=== PATIENT | male | born 1945 | race Caucasian/White ===

== ENCOUNTER 2022-06-26 11:52 | Emergency (ER) | payer MEDICARE, BC, SELFPAY ==
[2022-06-26] VITALS (26 sets, daily range): BP systolic 76–134; BP diastolic 47–80; PULSE 54–140; RESP 20; TEMP 36.4–36.8; O2SAT 95–100; BMI 23.6
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
--- NOTE | 2022-06-26 12:55 | DI.CT.S_ITS ---
PROCEDURE: CT HEAD/BRAIN WO CON INDICATIONS: trauma TECHNIQUE: Noncontrast 4.5 mm thick angled axial sections acquired from the foramen magnum to the vertex, with coronal and sagittal reformats. For radiation dose reduction, the following was used: automated exposure control, adjustment of mA and/or kV according to patient size. COMPARISON: None. FINDINGS: Image quality: Excellent. CSF spaces: Basal cisterns are patent. No extra-axial fluid collections. Ventricles are normal in size and shape. Brain: No midline shift. No intracranial masses or hemorrhage. Bhardwaj-white matter interface is normal. Skull and face: Calvarium and visualized facial bones are intact, without suspicious lesions. Sinuses: Visualized sinuses and mastoids are clear. IMPRESSION: No evidence acute intracranial abnormality Dictated by: Jesus Rios M.D. on 06/26/2022 at 13:52 Approved by: Jesus Rios M.D. on 06/26/2022 at 13:53
--- NOTE | 2022-06-26 12:55 | DI.CT.S_ITS ---
PROCEDURE: CT CERVICAL SPINE WO CON INDICATIONS: trauma TECHNIQUE: Noncontrast 3 mm thick sections acquired from the skull base to the T4 level. Sagittal and coronal reformats were then constructed. For radiation dose reduction, the following was used: automated exposure control, adjustment of mA and/or kV according to patient size. COMPARISON: None. FINDINGS: Image quality: Excellent. Bones: No fractures or dislocations. Visualized superior ribs are intact. Multilevel facet arthropathy. Soft tissues: Prevertebral soft tissues are normal in thickness. No paravertebral hematomas. No apical pneumothoraces. IMPRESSION: 1. No evidence acute cervical fracture or dislocation. 2. Cervical spondylitic change. Dictated by: Jesus Rios M.D. on 06/26/2022 at 14:11 Approved by: Jesus Rios M.D. on 06/26/2022 at 14:12
--- NOTE | 2022-06-26 12:55 | DI.CT.S_ITS ---
PROCEDURE: CT CHEST ABD PEL W CON INDICATIONS: trauma TECHNIQUE: After the administration of intravenous contrast, 5 mm thick sections acquired from the lung apices to the symphysis. 2.5 mm thick coronal and sagittal reformats were acquired. Additional 7 mm thick coronal maximum intensity projection (MIP) reformats acquired through the lungs. Optional 10-minute delayed imaging may be performed from the kidneys to the bladder. For radiation dose reduction, the following was used: automated exposure control, adjustment of mA and/or kV according to patient size. COMPARISON: None. FINDINGS: Image quality: Excellent. CHEST: Lungs: No pulmonary contusions or lacerations. No acute airspace opacities. No pneumothorax or hemothorax. Central and peripheral airways appear patent and normal in caliber. Mediastinum: No mediastinal hematomas. Mild cardiomegaly. No pericardial effusion. Thoracic aorta and pulmonary arteries demonstrate normal size and enhancement. No mediastinal or hilar adenopathy. Esophagus is normal in caliber. No hiatal hernia. Chest wall: No rib fractures. No subcutaneous emphysema. No axillary or supraclavicular adenopathy. Thyroid gland is unremarkable. Incidental note is made of the presence of a probable paralabral cyst of the left shoulder suggesting a left shoulder labral tear. This is an incidental finding. ABDOMEN: Solid organs: There is a grade 2 liver liver laceration on image 62/2 with a small peripheral left lobe laceration and associated subcapsular hematoma involving less than 50% of the surface of the liver. Gallbladder is unremarkable. Biliary system is non-dilated. Pancreas enhances normally, without transection. There is a significant splenic traumatic injury, which is a grade 3 traumatic injury. A significant portion of the spleen is involved in hematoma. There is rupture outside the spleen into the adjacent retroperitoneal tissues. No adrenal hematomas. There is a grade 5 traumatic injury of the left kidney, which is a shattered kidney with extensive hemorrhage into the perinephric tissues. There is also deep pelvic peritoneal hemorrhagic ascites.. Peritoneum and bowel: Moderate hiatal hernia. There is a small amount of hemorrhagic ascites in the pelvis. There is extensive perinephric and perisplenic retroperitoneal hematoma. Unenhanced bowel loops demonstrate normal wall thickness and caliber. Nodes and vessels: No retroperitoneal or mesenteric adenopathy. Aorta and inferior vena cava are normal in size and enhancement. Miscellaneous: No ventral hernias. PELVIS: Genitourinary: Bladder wall thickness is normal. Miscellaneous: No inguinal hernias or adenopathy. Bones: Pelvic ring and hip joints appear intact. No acute vertebral compression fractures. Bilateral total hip arthroplasties. IMPRESSION: 1. There is an AAST grade 2 liver injury, with a small left lobe liver laceration and subcapsular hematoma extending over less than 50% of the surface area of the liver. 2. There is a AAS grade 3 splenic injury with large splenic hematoma and rupture outside of the spleen into the adjacent retroperitoneal tissues with retroperitoneal hematoma. 3. There is a grade 5 traumatic injury of the left kidney, which is a shattered kidney, with extensive hemorrhage into the perinephric tissues. 4. There is significant retroperitoneal hematoma in the vicinity of the spleen and kidney on the left. There is also hemorrhagic ascites in the pelvis. Comment: Findings were discussed with Dr. Hua on 06/26/2022 at 1357 hours and 1409 hours Dictated by: Jesus Rios M.D. on 06/26/2022 at 13:56 Approved by: Jesus Rios M.D. on 06/26/2022 at 14:11
--- NOTE | 2022-06-26 12:56 | DI.RAD.S_ITS ---
PROCEDURE: XR ELBOW LT MIN 3V INDICATIONS: fall/pain TECHNIQUE: 3 views of the elbow were acquired. COMPARISON: None. FINDINGS: Bones: No fractures or dislocations. No suspicious bony lesions. Soft tissues: No elbow joint effusion. No suspicious soft tissue calcifications. IMPRESSION: No acute osseous abnormality. If symptoms persist, follow-up radiographs and/or CT or MRI may be helpful for further evaluation. Dictated by: Arsh Dowling M.D. on 06/26/2022 at 14:33 Approved by: Arsh Dowling M.D. on 06/26/2022 at 14:36
--- NOTE | 2022-06-26 12:56 | DI.RAD.S_ITS ---
PROCEDURE: XR SHOULDER LT MIN 2V INDICATIONS: fall/pain TECHNIQUE: 3 views of the shoulder were acquired. COMPARISON: None FINDINGS: Bones: No fractures or dislocations. No suspicious bony lesions. Visualized ribs appear intact. Soft tissues: No suspicious soft tissue calcifications. IMPRESSION: No acute osseous abnormality. If symptoms persist, follow-up radiographs and/or CT or MRI may be helpful for further evaluation. Dictated by: Arsh Dowling M.D. on 06/26/2022 at 14:36 Approved by: Arsh Dowling M.D. on 06/26/2022 at 14:39
[2022-06-26 13:03] LABS: Add Manual Diff / Slide Review NO; Basophils Absolute Auto 0 /uL (0-100); Basophils Percent Auto 0.4 % (0-2); Eosinophils Absolute Auto 100 /uL (0-450); Eosinophils Percent Auto 0.7 % (2-4); Hematocrit 39.4 % (41-53); Hemoglobin 13.1 g/dL (13.5-17.5); Lymphocytes Absolute Auto 1600 /uL (1100-4500); Lymphocytes Percent Auto 16.1 % (25-40); Mean Corpuscular HGB Conc 33.3 % (30-36); Mean Corpuscular Hemoglobin 31.6 PG (26-34); Mean Corpuscular Volume 94.9 fL (80-100); Monocytes Absolute Auto 500 /uL (0-900); Neutrophils Absolute Auto 7700 /uL (1500-7000); Neutrophils Percent Auto 77.8 % (50-75); Platelet Count 287 X10^3/uL (150-400); Red Blood Cell Count 4.15 X10^6/uL (4.5-5.9); Red Cell Distribution Width 13.4 % (11.6-14.8); White Blood Cell Count 9.9 X10^3/uL (4.5-11.0)
[2022-06-26 13:09] LABS: Alanine Aminotransferase 20 IU/L (<50); Albumin 3.8 g/dL (3.5-5.0); Albumin Globulin Ratio 1.5 (1.0-2.8); Alkaline Phosphatase 53 U/L (38-126); Aspartate Aminotransferase 30 IU/L (17-59); BUN Creatinine Ratio 28.8 (6-22); Bilirubin Total 0.4 mg/dL (0.2-1.3); Blood Urea Nitrogen 21 mg/dL (9-20); Calcium 8.8 mg/dL (8.4-10.2); Carbon Dioxide 27 mmol/L (22-32); Chloride 106 mmol/L (98-107); Estimated Glomerular Filt Rate > 60 mL/min (>60); Globulin 2.6 g/dL (1.7-4.1); Glucose 162 mg/dL (80-110); HEMOLYSIS < 15 (0-50); Lipase 137 U/L (23-300); Sodium 138 mmol/L (137-145); Total Protein 6.4 g/dL (6.3-8.2)
[2022-06-26] MEDS: SODIUM CHLORIDE 0.9% 1,000 ML 1000 ML IV (13:30)
--- NOTE | 2022-06-26 14:31 | PC.NURSE ---
C-spine cleared, collar removed. Blood transfusing @ 1423. [facility] ETA 8 minutes. Provider has been at the bedside numerous times. at the bedside. Alcocer placed at 1400, hematuria.
--- NOTE | 2022-06-26 15:19 | PC.NURSE ---
[employer] departure @ 1448, blood running at 150 at time of departure
--- NOTE | 2022-06-26 15:58 | PC.NURSE ---
Attempted to close out the TAR blood administration, upon pts departure via airlift @ 1448. network account manager aware and attempted to close out TAR as well, she too was unable. TAR blood adminstration began at 1422, running at 75mls hr. TAR blood administration increased to 150ml/hr at 1448. Airlift crew departed with pt at 1448. Charge aware of this TAR issue and advised this documentation. Total blood unit volume 325ml. Roughly 20ml blood administered prior to airlift departure.
== END 2022-06-26 15:00 | disposition short-term general hospital (02) ==
PROVIDERS: Emergency Medicine; Emergency Provider Student in an Organized Health Care Education/Training Program
DX: S37.032A Laceration of left kidney, unspecified degree, initial encounter (principal); S36.039A Unspecified laceration of spleen, initial encounter; S36.113A Laceration of liver, unspecified degree, initial encounter; R58 Hemorrhage, not elsewhere classified; S06.9X9A Unspecified intracranial injury with loss of consciousness of unspecified duration, initial encounter; R07.9 Chest pain, unspecified; R10.10 Upper abdominal pain, unspecified; S50.312A Abrasion of left elbow, initial encounter; S40.212A Abrasion of left shoulder, initial encounter; R79.89 Other specified abnormal findings of blood chemistry; V19.9XXA Pedal cyclist (driver) (passenger) injured in unspecified traffic accident, initial encounter
CPT/HCPCS: 36415; 36430; 70450; 71260; 72125; 73030; 73080; 74177; 80053; 83690; 85025; 86850; 86900; 86901; 96360; 99285; P9016; Q9967